=== PATIENT | female | born 2000 | race Native Hawaiian/Other Pacific Islander ===

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

== ENCOUNTER 2020-07-26 12:48 | Outpatient (CLI) | payer BC | END 2020-07-26 20:32 | disposition home or self-care (01) | LOC: RAD 12:48 | DX: M79.641 Pain in right hand (principal) ==